=== PATIENT | female | born 1985 | race Caucasian/White ===

== ENCOUNTER → 2020-10-07 | Outpatient (CLI) | payer SELFPAY ==
[2020-10-07 16:30] LABS: HEMATOCRIT 40 % (35-52); HEMOGLOBIN 13.2 G/DL (11.5-16.0); MEAN CORPUSCULAR HEMOGLOBIN 30 PG (25-34); MEAN CORPUSCULAR HGB CONC 33 G/DL (32-36); MEAN CORPUSCULAR VOLUME 91 FL (80-99); MEAN PLATELET VOLUME 10.2 FL (7.4-10.4); PLATELET COUNT 278 10^3/uL (130-400); WHITE BLOOD COUNT 9.2 10^3/uL (4.3-11.0)
[2020-10-07 16:31] LABS: BASOPHILS % (AUTO) 0 % (0-10); EOSINOPHILS # (AUTO) 0.2 10^3/uL (0.0-0.3); EOSINOPHILS % (AUTO) 2 % (0-10); LYMPHOCYTES # (AUTO) 2.5 X 10^3 (1.0-4.0); LYMPHOCYTES % (AUTO) 27 % (12-44); MONOCYTES # (AUTO) 0.4 X 10^3 (0.0-1.0); MONOCYTES % (AUTO) 4 % (0-12); NEUTROPHILS # (AUTO) 6.1 X 10^3 (1.8-7.8); NEUTROPHILS % (AUTO) 67 % (42-75)
== END ==
LOC: LAB FS 15:58
PROVIDERS: ATTEND Family Medicine
DX: Z34.81 Encounter for supervision of other normal pregnancy, first trimester (principal); Z3A.00 Weeks of gestation of pregnancy not specified
CPT/HCPCS: 36415; 80055; 86703; 86762; 86780; 87088

== ENCOUNTER → 2021-01-06 | Outpatient (CLI) | payer MEDICAID ==
--- NOTE | 2021-01-06 11:23 | Diagnostic Imaging Report ---
INDICATION: Assessment during normal TECHNIQUE: Multiple real-time grayscale images were obtained over the gravid uterus. COMPARISON: None FINDINGS: Single viable intrauterine is currently in cephalic presentation. Placenta anterior fundal aspect without previa. The placenta margin to the os is approximately 8.9 cm. Normal amount of amniotic fluid. Visualized anatomical structures including the kidneys, bladder, stomach, intracranial structures, four-chamber heart, spine and cord insertion site unremarkable. There is presence of a two-vessel cord. Cervical length at 5.6 cm. Biometrical measurements are as follows: Biparietal 5.03 cm, age 21 weeks 2 days. Head circumference 19.06 cm, age 21 weeks 3 days. Abdominal circumference 16.98 cm, age 22 weeks 0 days. Femur length 4.27 cm, age 22 weeks 4 days. Sonographic estimate age: 22 weeks 2 days. Sonographic estimated date of delivery: 05/10/2021. Estimated Weight: 521 gm (+/- 76 gm). LMP percentile: 98%. heart rate: 152 beats per minute. number: 1 of 1. IMPRESSION: 1. Single viable intrauterine currently in cephalic presentation. Sonographic estimated age 22 weeks 2 days for estimated date of delivery 05/10/2021. 2. There is note made of a two-vessel umbilical cord. The remaining visualized anatomical structures appearing unremarkable. Dictated by: Dictated on workstation # [id number]
== END ==
LOC: RAD FS 08:03
PROVIDERS: ATTEND Obstetrics & Gynecology
DX: Z34.02 Encounter for supervision of normal first pregnancy, second trimester (principal); Z3A.22 22 weeks gestation of pregnancy
CPT/HCPCS: 76805

== ENCOUNTER 2021-01-11 12:44 | Emergency (ER) | payer MEDICAID ==
[~2021-01-11] VITALS: Ht 177.8 cm; Wt 90.7 kg
[2021-01-11 12:47] VITALS: BP 130/73
[2021-01-11] MEDS ORDERED: ACETAMINOPHEN 500 MG TAB (TYLENOL) PO STA (12:54)
--- NOTE | 2021-01-11 13:02 | ED Lower Extremity ---
General Chief Complaint: Lower Extremity Stated Complaint: LEFT ANKLE INJ Source: patient History of Present Illness Date Seen by Provider: January 11, 2021 Time Seen by Provider: 12:46 Initial Comments 35 yo female presenting with pain to left hair and ankle after having a pig run into her leg. She is approximately 23 weeks currently. She is taking p renatal vitamins but denies other medicine. 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 She states she has not been able to stand due to pain and burning in the foot and ankle. She came straight here and has not taken anything for pain. Pain is increased if she tries to stand, move her foot up, or has vibration to the lower extremity. She denies having problems with the extremity before today's injury. She denies any other injuries. Onset: just prior to arrival Severity: severe Pain/Injury Location: left leg, left ankle Method of Injury: other (pig ran into her leg) Modifying Factors: Worse With Jarring, Worse With Movement Associated Symptoms: burning sensation and pain Allergies and Home Medications Allergies Coded Allergies: aspirin (Verified Allergy, Unknown, Hives, 01/11/21) Home Medications Hydrocodone/Acetaminophen 1 Each Tablet, 1 TAB PO Q4H PRN for PAIN-SEVERE (8-10) Prescribed by: MARIANNA HERNANDEZ on 01/11/21 1344 Patient Home Medication List Home Medication List Reviewed: Yes Review of Systems Constitutional: no symptoms reported EENTM: no symptoms reported Respiratory: no symptoms reported Cardiovascular: no symptoms reported Gastrointestinal: no symptoms reported Genitourinary: no symptoms reported : Yes Musculoskeletal: see HPI Skin: change in color (slight red lenny to middle of hair where majority of pain is located and where pig hit her leg) Psychiatric/Neurological: Anxiety, Other (burning sensation in leg) Past Kdlyyqt-Fbyncp-Izmktm Hx Past Med/Social Hx: Reviewed Nursing Past Med/Soc Hx Past Medical History Surgeries: Yes Abdominal Respiratory: No Cardiac: Yes Neurological: No : Yes Reproductive Disorders: No Genitourinary: No Gastrointestinal: No Musculoskeletal: No Endocrine: No Psychosocial: No Physical Exam Vital Signs Vital Signs - First Documented 01/11/21 12:47 Temp 37.6 Pulse 90 Resp 18 B/P (MAP) 130/73 (92) Pulse Ox 100 O2 Delivery Room Air Capillary Refill : Height, Weight, BMI Height: '" Weight: lbs. oz. 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, no motor/sensory deficits, alert, oriented x 3 Skin: warm/dry, other (slight red color to mid hair on left side where she has contusion and pain and states the pig ran into her leg) Progress/Results/Core Measures Results/Orders My Orders Orders - MARIANNA HERNANDEZ MD Acetaminophen Tablet (Tylenol Tablet) (01/11/21 12:54) Ice: Apply To Affected Area (01/11/21 12:55) Elevate Affected Extremity (01/11/21 12:55) Tibia Fibula 2 View Left (01/11/21 12:55) Ankle 3 View Left (01/11/21 12:55) Hydrocodone/Apap 5/325 Tablet (Lortab 5 (01/11/21 13:44) Crutches (01/11/21 13:45) Vital Signs/I&O 01/11/21 12:47 Temp 37.6 Pulse 90 Resp 18 B/P (MAP) 130/73 (92) Pulse Ox 100 O2 Delivery Room Air Progress Progress Note #1: Progress Note ice, elevation, acetaminophen 500 mg ordered to help with pain. Order xrays to evaluate the tib/fib and ankle better for bony injury. differential diagnosis includes contusion to tibia, ankle fracture, tibia/fibula fracture, nerve contusion Progress Note #2: Time: 13:26 Progress Note discussed with patient and spouse that I did not see any definite fracture or dislocation on the xrays. It looked like there might be a small radio-opaque foreign body or bone chip on medial aspect of mortise view but not seen on other views. With her having burning sensation still this may be mostly contusion of bone and nerves causing her symptoms. Will try ice, elevation, rest and crutches for weight bearing as tolerated. for pain add on Hydrocodone/apap for severe pain if the plain acetaminophen does not manage her pain. Progress Note #3: Time: 13:59 Progress Note Radiology report shows no acute fracture or disruption of ankle mortise. Dr. Gilbert with radiology also made note of the small density within the ankle mortise area but no disruption of ankle mortise or joint effusion. Updated pt and spouse and offered a walking boot but she declined as she felt it would put too much pressure and make pain worse instead of improve it. Proceed with plan as above and advised to check back with Dr. Vegas if not improving or worsening as may need CT or MRI of ankle to look for fracture, or at least repeat xrays. Diagnostic Imaging Diagonstic Imaging: Xray Plain Films/CT/US/NM/MRI: leg Comments [facility] [place] [place] NAME: [facility] REC#: [id number] PT STATUS: REG ER : 1985 PHYSICIAN: MARIANNA HERNANDEZ MD ADMIT DATE: 01/11/21/ER FS Draft Date of Exam:01/11/21 TIBIA FIBULA 2 VIEW LEFT Left tibia-fibula at 1:08. Indication: Leg pain AP and lateral views were obtained. There are no prior studies available for comparison. There is no fracture, dislocation or acute bony abnormality evident. The lateral view does show that there is a smooth 1.5 cm bony excrescence along the posterior aspect of the proximal tibia. This finding is of uncertain etiology but could be a sequela of prior trauma. The knee and ankle joint seem well maintained. The soft tissues are unremarkable aside from a number of small vascular calcifications along the anterior aspect of the tibia. Impression: There is no acute bony abnormality noted. Dictated on workstation # [id number] Dict: 01/11/21 1344 Trans: 01/11/21 1348 CV [id number] Interpreted by: CARIN GILBERT MD Electronically signed by: Diagonstic Imaging: Xray Plain Films/CT/US/NM/MRI: ankle Comments [facility] [place] [place] NAME: [facility] REC#: [id number] PT STATUS: REG ER : 1985 PHYSICIAN: MARIANNA HERNANDEZ MD ADMIT DATE: 01/11/21/ER FS Draft Date of Exam:01/11/21 ANKLE 3 VIEW LEFT Left ankle at 1:05 Indication: Ankle pain 3 views were obtained. There are no prior studies available for comparison. On the oblique view there is a small 2.6 cm calcific density interposed between the lateral aspect of the talar dome and the distal tibia and fibula. This finding cannot be identified on the other 2 projections. This may represent small avulsion fracture. I suspect this is long-standing in nature. Acute injury cannot be entirely excluded however. No other fracture or acute bony abnormality is appreciated. The ankle mortise is not widened and the talar dome is smooth. The soft tissues are unremarkable. Impression: 1. The small calcific density interposed between the talus and the distal tibia and fibula is of uncertain etiology and indeterminate in age. Considerations as above. 2. There is no acute bony abnormality noted otherwise. Dictated on workstation # [id number] Dict: 01/11/21 1343 Trans: 01/11/[address] [facility] [id number] Interpreted by: CARIN GILBERT MD Electronically signed by: Departure Impression Primary Impression: Contusion of left tibia Additional Impressions: Left leg injury Qualified Codes: S89.92XA - Unspecified injury of left lower leg, initial encounter Left leg pain Disposition: 01 HOME, SELF-CARE Condition: Stable Departure-Patient Inst. Decision time for Depature: 13:59 Referrals: BRIEN VEGAS MD (PCP/Family) Primary Care Physician Patient Instructions: Minor Contusion ED, Going Up and Down Curbs or Stairs With a Walker or Crutches, Opioids for Short-Term Treatment of Pain, Muscle and Bone Pain (DC) Add. Discharge Instructions: Use ice 15-20 minutes every few hours to help with pain and inflammation. Hydrocodone/Acetaminophen 5/325 mg 1 pill every 4 hours as needed for severe pain. Elevate and rest your left leg as much as possible in next 2-3 days and use crutches for weight bearing as you tolerate it. Check back with Dr. Vegas this upcoming week if continued pain/problems. All discharge instructions reviewed with patient and/or family. Voiced understanding. Scripts Hydrocodone/Acetaminophen (Hydrocodone-Acetamin 5-325 mg) 1 Each Tablet 1 TAB PO Q4H PRN for PAIN-SEVERE (8-10) for 5 Days, #30 TAB 0 Refills Prov: MARIANNA HERNANDEZ MD 01/11/21 Work/School Note: Work Release Form Date Seen in the Emergency Department: January 11, 2021 Return to Work: Jan 15, 2021 Other Restrictions Listed Below: Use crutches as needed for weightbearing MARIANNA HERNANDEZ MD January 11, 2021 13:02
[2021-01-11] MEDS ORDERED: HYDROcodone/APAP 5 MG/325 MG (LORTAB) TAB PO STA (13:44)
[2021-01-11] MEDS ORDERED: ACHD5005 PO (13:44)
--- NOTE | 2021-01-11 13:48 | Diagnostic Imaging Report ---
Left ankle at 1:05 Indication: Ankle pain 3 views were obtained. There are no prior studies available for comparison. On the oblique view there is a small 2.6 mm calcific density interposed between the lateral aspect of the talar dome and the distal tibia and fibula. This finding cannot be identified on the other 2 projections. This may represent small avulsion fracture. I suspect this is long-standing in nature. Acute injury cannot be entirely excluded however. No other fracture or acute bony abnormality is appreciated. The ankle mortise is not widened and the talar dome is smooth. The soft tissues are unremarkable. Impression: 1. The small calcific density interposed between the talus and the distal tibia and fibula is of uncertain etiology and indeterminate in age. Considerations as above. 2. There is no acute bony abnormality noted otherwise. Dictated by: Dictated on workstation # [id number]
--- NOTE | 2021-01-11 13:49 | Diagnostic Imaging Report ---
Left tibia-fibula at 1:08. Indication: Leg pain AP and lateral views were obtained. There are no prior studies available for comparison. There is no fracture, dislocation or acute bony abnormality evident. The lateral view does show that there is a smooth 1.5 cm bony excrescence along the posterior aspect of the proximal tibia. This finding is of uncertain etiology but could be a sequela of prior trauma. The knee and ankle joint seem well maintained. The soft tissues are unremarkable aside from a number of small vascular calcifications along the anterior aspect of the tibia. Impression: There is no acute bony abnormality noted. Dictated by: Dictated on workstation # [id number]
== END 2021-01-11 14:08 | disposition home or self-care (01) ==
LOC: EDUNIT# 12:44 → ER FS 12:46
DX: O9A.212 Injury, poisoning and certain other consequences of external causes complicating pregnancy, second trimester (principal); S80.12XA Contusion of left lower leg, initial encounter; Z3A.23 23 weeks gestation of pregnancy; W55.42XA Struck by pig, initial encounter
CPT/HCPCS: 73590; 73610

== ENCOUNTER → 2021-02-26 | Outpatient (CLI) | payer MEDICAID ==
[~2021-02-26] MED LIST: ACHD5005 PO
[2021-02-26 10:28] LABS: HEMATOCRIT 35 % (35-52); HEMOGLOBIN 11.7 G/DL (11.5-16.0); MEAN CORPUSCULAR HEMOGLOBIN 29 PG (25-34); MEAN CORPUSCULAR HGB CONC 33 G/DL (32-36); MEAN CORPUSCULAR VOLUME 89 FL (80-99); PLATELET COUNT 220 10^3/uL (130-400); WHITE BLOOD COUNT 8.7 10^3/uL (4.3-11.0)
== END ==
LOC: LAB FS 09:50
PROVIDERS: ATTEND Family Medicine
DX: Z34.81 Encounter for supervision of other normal pregnancy, first trimester (principal); Z3A.00 Weeks of gestation of pregnancy not specified
CPT/HCPCS: 36415; 82950; 85027; 86780; 86850

== ENCOUNTER → 2021-04-03 | Outpatient (CLI) | payer MEDICAID ==
--- NOTE | 2021-04-03 12:55 | Diagnostic Imaging Report ---
INDICATION: Evaluate growth and follow-up two-vessel cord. TECHNIQUE: Multiple real-time grayscale images were obtained over the gravid uterus. COMPARISON: 01/06/2021. FINDINGS: There is a single live fetus in a breech presentation. heart rate was recorded at 146 bpm. Placenta is anterior and fundal. Amniotic fluid index is 12.3 cm. Cervical length is 5.6 cm. There is a two-vessel umbilical cord. No other complicating features are detected. Biometrical measurements are as follows: Biparietal 8.96 cm, age 36 weeks 2 days. Head circumference 31.08 cm, age 34 weeks 6 days. Abdominal circumference 29.65 cm, age 33 weeks 5 days. Femur length 6.57 cm, age 33 weeks 6 days. Sonographic estimate age: 34 weeks 5 days. Sonographic estimated date of delivery: 05/10/2021. Estimated Weight: 2339 gm (+/- 342 gm). LMP percentile: 70%. heart rate: 146 beats per minute. number: 1 of 1. IMPRESSION: Single live IUP approximately 34-35 weeks gestational age showing normal interval growth when compared to prior exam. Two-vessel cord is again noted. No other abnormalities are detected. Dictated by: Dictated on workstation # [id number]
== END ==
LOC: RAD FS 10:17
PROVIDERS: ATTEND Family Medicine
DX: O69 Labor and delivery complicated by umbilical cord complications (principal); Z3A.34 34 weeks gestation of pregnancy
CPT/HCPCS: 76805

== ENCOUNTER → 2021-04-09 | Outpatient (CLI) | payer MEDICAID | LOC: LABNPT 15:01 | PROVIDERS: ATTEND Family Medicine | DX: Z34.81 Encounter for supervision of other normal pregnancy, first trimester (principal) | CPT/HCPCS: 87081 ==

== ENCOUNTER 2021-05-07 19:00 | Inpatient (IN) | payer MEDICAID ==
[~2021-05-07] VITALS: Ht 177.8 cm; Wt 95.6 kg
[2021-05-07 19:20] VITALS: BP 115/71
[2021-05-07] MEDS ORDERED: NS IV 1000 ML 1,000 ML ONE (19:50)
[2021-05-07 20:00] VITALS: BP 115/71
[2021-05-07] MEDS ORDERED: NS IV 1000 ML 1,000 ML IV SCH (20:00)
[2021-05-07 20:35] LABS: BILIRUBIN,URINE NEGATIVE (NEGATIVE); CLARITY,URINE CLEAR; COLOR,URINE YELLOW; GLUCOSE, URINE (UA) NEGATIVE (NEGATIVE); KETONES,URINE TRACE (NEGATIVE); LEUKOCYTE ESTERASE ,URINE NEGATIVE (NEGATIVE); NITRITE,URINE NEGATIVE (NEGATIVE); PH,URINE 6.5 (5-9); PROTEIN,URINE NEGATIVE (NEGATIVE)
[2021-05-07 20:35] LABS: BASOPHILS % (AUTO) 0 % (0-10); EOSINOPHILS # (AUTO) 0.1 10^3/uL (0.0-0.3); EOSINOPHILS % (AUTO) 1 % (0-10); HEMATOCRIT 39 % (35-52); HEMOGLOBIN 12.9 g/dL (11.5-16.0); LYMPHOCYTES # (AUTO) 2.6 10^3/uL (1.0-4.0); LYMPHOCYTES % (AUTO) 28 % (12-44); MEAN CORPUSCULAR HEMOGLOBIN 29 pg (25-34); MEAN CORPUSCULAR HGB CONC 33 g/dL (32-36); MEAN CORPUSCULAR VOLUME 89 fL (80-99); MEAN PLATELET VOLUME 11.6 fL (9.0-12.2); MONOCYTES # (AUTO) 0.4 10^3/uL (0.0-1.0); MONOCYTES % (AUTO) 4 % (0-12); NEUTROPHILS # (AUTO) 6.1 10^3/uL (1.8-7.8); NEUTROPHILS % (AUTO) 66 % (42-75); PLATELET COUNT 211 10^3/uL (130-400); WHITE BLOOD COUNT 9.2 10^3/uL (4.3-11.0)
[2021-05-07] MEDS ORDERED: ACET-2267 PO (20:38)
[2021-05-07] MEDS ORDERED: CYCL5TAB PO (20:38)
[2021-05-07] MEDS ORDERED: ACHD5005 PO (20:38)
[2021-05-07] MEDS ORDERED: PREN-8 PO (20:38)
[2021-05-07 20:48] LABS: BACTERIA,URINE TRACE /HPF; RBC,URINE RARE /HPF
[2021-05-07 21:00] VITALS: BP 119/57
[2021-05-07] MEDS: D5 LR IV SOLUTION 1,000 ML IV SCH (21:18)
[2021-05-07 22:00] VITALS: BP 114/61
[2021-05-07] MEDS ORDERED: CATHETER FLUSH 10 ML SYR IV SCH (22:00)
--- NOTE | 2021-05-07 22:19 | History & Physical-OB ---
OB - Chief Complaint & HPI Date/Time Date of Admission: Date of Admission: May 07, 2021 at 19:09 Date seen by a Provider: May 08, 2021 Time Seen by a Provider: 07:55 Chief Complaint/History OB-Reason for Admission/Chief: Induction of Labor Hx : 3 Hx Para: 2 Expected Date of Delivery: May 14, 2021 Gestational Age in Weeks: 39 Admission Nurse Assessment Rev: Yes History of Labs GBS neg O neg Antibody neg RNI HBsAg NR HIV NR RPR NR Allergies and Home Medications Allergies Coded Allergies: Penicillins (Verified Allergy, Unknown, rash, 05/07/21) aspirin (Verified Allergy, Unknown, Hives, 01/11/21) Patient Home Medication List Home Medication List Reviewed: Yes Acetaminophen (Tylenol Extra Strength) 500 Mg Tablet, 500 MG PO BID, (Reported) Entered as Reported by: DENNIS WRIGHT on 05/07/212037 Last Action: New Order Cyclobenzaprine HCl (Cyclobenzaprine HCl) 5 Mg Tablet, 5 MG PO PRN, (Reported) Entered as Reported by: DENNIS WRIGHT on 05/07/212037 Last Action: New Order Hydrocodone/Acetaminophen (Hydrocodone-Acetamin 5-325 mg) 1 Each Tablet, 0.5 TAB PO Q4H PRN for PAIN-MODERATE (5-7), (Reported) Entered as Reported by: DENNIS WRIGHT on 05/07/212037 Last Action: New Order Vit W-Ca,Fe,FA(<1 mg) ( Formula) 1 Each Tablet, 1 EACH PO DAILY, (Reported) Entered as Reported by: DENNIS WRIGHT on 05/07/212037 Last Action: New Order Discontinued Medications Hydrocodone/Acetaminophen (Hydrocodone-Acetamin 5-325 mg) 1 Each Tablet, 1 TAB PO Q4H PRN for PAIN-SEVERE (8-10) Discontinued Reason: No Longer Taking Prescribed by: MARIANNA HERNANDEZ on 01/11/21 1344 Last Action: Discontinued OB - History Hx of Present Care: Yes Ultrasounds: Normal mid trimester US Obstetrical Complications: Other (2 vessel cord) Medical Complications: None Patient Past Medical History n/a Social History/Family History 2nd Hand Smoke Exposure: No OB - Admission Exam Physical Exam HEENT: NCAT Heart: Rhythm Normal Lungs: Clear Abdomen: Gravid Extremities: Normal Reflexes: Normal Cervical Dilatation: 2cm Effacement: 75% Station: -1 Membranes: Intact Heart Rate: 130's Accelerations: Accelerations Present Decelerations: No Decelerations Short Term Variability: Present Detention Variability: Average (6-25) Contractions on Admission: >10 Minutes Apart Intensity: Mild Multani Scoring Tool (Modified) Dilation (cm): 1-2cm (1) Effacement (%): 51-79% (2) Descent/Station: -1,0 (2) Cervix Consistency: Soft (2) Cervix Position: Anterior (2) Add 1 point for: Each previous vaginal delivery (1) Multani Score: 10 Labs Laboratory Tests Test 05/07/21 20:00 05/07/21 20:15 Range/Units Urine Color YELLOW Urine Clarity CLEAR Urine pH 6.5 5-9 Urine Specific [place] 1.015 L 1.016-1.022 Urine Protein NEGATIVE NEGATIVE Urine Glucose (UA) NEGATIVE NEGATIVE Urine Ketones TRACE H NEGATIVE Urine Nitrite NEGATIVE NEGATIVE Urine Bilirubin NEGATIVE NEGATIVE Urine Urobilinogen 0.2 < = 1.0 MG/DL Urine Leukocyte Esterase NEGATIVE NEGATIVE Urine RBC (Auto) 3+ H NEGATIVE Urine RBC RARE /HPF Urine WBC NONE /HPF Urine Squamous Epithelial Cells 5-10 /HPF Urine Crystals NONE /LPF Urine Bacteria TRACE /HPF Urine Casts NONE /LPF Urine Mucus NEGATIVE /LPF Urine Culture Indicated NO White Blood Count 9.2 4.3-11.0 10^3/uL Red Blood Count 4.39 3.80-5.11 10^6/uL Hemoglobin 12.9 11.5-16.0 g/dL Hematocrit 39 35-52 % Mean Corpuscular Volume 89 80-99 fL Mean Corpuscular Hemoglobin 29 25-34 pg Mean Corpuscular Hemoglobin Concent 33 32-36 g/dL Red Cell Distribution Width 13.2 10.0-14.5 % Platelet Count 211 130-400 10^3/uL Mean Platelet Volume 11.6 9.0-12.2 fL Immature Granulocyte % (Auto) 1 % Neutrophils (%) (Auto) 66 42-75 % Lymphocytes (%) (Auto) 28 12-44 % Monocytes (%) (Auto) 4 0-12 % Eosinophils (%) (Auto) 1 0-10 % Basophils (%) (Auto) 0 0-10 % Neutrophils # (Auto) 6.1 1.8-7.8 10^3/uL Lymphocytes # (Auto) 2.6 1.0-4.0 10^3/uL Monocytes # (Auto) 0.4 0.0-1.0 10^3/uL Eosinophils # (Auto) 0.1 0.0-0.3 10^3/uL Basophils # (Auto) 0.0 0.0-0.1 10^3/uL Immature Granulocyte # (Auto) 0.1 0.0-0.1 10^3/uL OB - Assessment/Plan/Diagnosis Assessment Assessment: induction of labor Admission Dx 35 y o @ 39 weeks GBS neg 2 vessel cord Admission Status: Inpatient Order (span 2 midnights) Reason for Inpatient Admission: IOL at 39 weeks Plan Plan: Induction Induction Method: per Misoprostol Protocol ABBEY UNDERWOOD DO May 07, 2021 22:19
[2021-05-07 23:00] VITALS: BP 100/58
[2021-05-08] VITALS (65 sets, daily range): BP systolic 89–129; BP diastolic 50–82
[2021-05-08] MEDS: D5 LR IV SOLUTION 1,000 ML IV SCH ×3 (05:15→13:29)
[2021-05-08] MEDS ORDERED: NALOXONE 0.4 MG/ML 1 ML (NARCAN) VIAL ONE (08:48)
[2021-05-08] MEDS ORDERED: fentaNYL 2 mcg/ml BUPIVA 0.125 100 ML ONE (09:03)
[2021-05-08] MEDS ORDERED: LACTATED RINGERS 1,000 ML IV ONE ×3 (09:03→10:00)
[2021-05-08] MEDS ORDERED: fentaNYL INJ 100 MCG/2 ML AMP INJ ONE (10:00)
[2021-05-08] MEDS ORDERED: BUPIVACAINE 0.25% 30 ML (SENSORCAINE) VIAL ONE (10:00)
[2021-05-08] MEDS ORDERED: fentaNYL INJ 100 MCG/2 ML AMP ONE (10:00)
[2021-05-08] MEDS ORDERED: EPIDURAL (fentaNYL 2 MCG/ML BUPIVA 0.125%)100 ML BAG EPI PRN (10:00)
[2021-05-08] MEDS ORDERED: NALOXONE 0.4 MG/ML 1 ML (NARCAN) VIAL IV PRN ×2 (10:00→16:30)
[2021-05-08] MEDS ORDERED: ONDANSETRON 4 MG/2 ML (SDV) Z0FRAN IV PRN (10:00)
[2021-05-08] MEDS ORDERED: fentaNYL 2 mcg/ml BUPIVA 0.125 100 ML EPI PRN (10:15)
[2021-05-08] MEDS ORDERED: LIDOCAINE 1% INJ 20 ML 20 ML VIAL ONE ×2 (10:29→16:06)
[2021-05-08] MEDS ORDERED: OXYTOCIN PRE-MIX DRIP 500 ML IV SCH ×2 (11:45→16:30)
[2021-05-08] MEDS ORDERED: OXYTOCIN PRE-MIX DRIP 500 ML IV ONE (11:47)
[2021-05-08] MEDS ORDERED: TETANUS,DIPTH,PERTUSS P/F (BOOSTRIX) 0.5 ML VIAL IM ONE (16:30)
[2021-05-08] MEDS ORDERED: WITCH HAZEL(TUCKS) 40 EA JAR TOP PRN (16:30)
[2021-05-08] MEDS ORDERED: DIBUCAINE 1% OINTMENT 30 GM TUBE TOP PRN (16:30)
[2021-05-08] MEDS ORDERED: MEASLES,MUMPS,RUBELLA 1 EA INJ SQ ONE (16:30)
[2021-05-08] MEDS ORDERED: BENZOCAINE/MENTHOL (DERMOPLAST) 56 ML CAN TP PRN (16:30)
--- NOTE | 2021-05-08 16:30 | OB Labor & Delivery Record ---
L&D History Date of Service Date of Service: May 08, 2021 History Expected Date of Delivery: May 14, 2021 Gestational Age in Weeks: 39 Hx : 3 Hx Para: 2 Complications Events: Routine care Operative Indications (Cesarea: N/A-Vaginal Delivery Intrapartal Events: None L&D Stage1 Stage One Onset of Labor - Date: May 08, 2021 Monitors and Tracing Monitor Mode: External Heart Rate: 130 Station: -2 Short Term Variability: Present Vital Signs VS - Last 72 Hours, by Label 05/07/21 05/07/21 05/07/21 05/07/21 19:20 20:00 21:00 22:00 Temp 36.3 36.3 Pulse 75 75 67 55 Resp 18 18 18 18 B/P (MAP) 115/71 (86) 119/57 (77) 114/61 (78) Pulse Ox 98 98 O2 Delivery Room Air Room Air Room Air Room Air 05/07/21 05/08/21 05/08/21 05/08/21 23:00 00:00 01:00 02:00 Temp 36.5 Pulse 66 63 53 51 Resp 18 18 18 18 B/P (MAP) 100/58 (72) 102/58 (73) 96/52 (67) 93/55 (68) O2 Delivery Room Air Room Air Room Air Room Air 05/08/21 05/08/21 05/08/21 05/08/21 03:00 04:00 05:00 06:00 Temp 36.2 Pulse 52 58 54 48 Resp 18 18 18 18 B/P (MAP) 94/50 (65) 112/65 (81) 112/69 (83) 109/71 (84) O2 Delivery Room Air Room Air Room Air Room Air 05/08/21 05/08/21 05/08/21 07:00 07:37 08:07 Temp 35.9 36.3 Pulse 62 60 Resp 18 18 B/P (MAP) 99/61 (74) 119/66 (83) Pulse Ox 98 O2 Delivery Room Air Room Air Rupture of Membranes Spontaneous Ruture of Membrane: No Amniotic Membrane Rupture Time: 0803 Vaginal Bleeding Description: Normal Show Induction/Anesthesia Epidural Cath Placement - Time: 1038 Progress/Notes Patient admitted for elective IOL at 39 weeks. Misoprostol given overnight followed by Pitocin augmentation today following AROM. Epidural received, and she progressed to complete and + 2 station with max dose of pitocin of 2 mu. L&D Stage2 Stage Two Stage II Date: May 08, 2021 Monitors and Tracing Monitor Mode: External Heart Rate: 130 Monitor Accelerations: Uniform Monitor Decelerations: Variable Transport Tank Technician Variability: Average (6-10) Short Term Variability: Present Position: Right Occiput Anterior Presentation: Vertex Cord Descript/Complications Cord Vessel Description: 3 Vessels Delivery Type Infant Delivery Method: Spontaneous Vaginal Anterior Shoulder: Left Episiotomy/Perineal Laceration Laceraction(s)/Extensions: Yes (bilateral periurethral and 1st degree vaginal lacerations repaired using 3-0 rapide in usual fashion) Episiotomy Description: Vaginal Extension/lac, 1st degree Sutures Used: Vicryl Condition of Delivery 1 minute Comment: 8 5 minute Comment: 9 Notes Live male infant weight 6lbs 11 oz. Condition of Condition of Infant: Living Exam: No Observed Abnormalities Resuscitation Resuscitation: N/A - Spontaneous Resp L&D Stage3 Stage Three Stage III Date: May 08, 2021 Pictocin Pitocin Administration mu/min: 2 Pitocin ml/hr: 2 Pitocin Administration Comment: 30 mu wide open at delivery of placenta Placenta Delivery Placenta Delivery: Spontaneous Delivery Summary Summary Estimated blood loss (mL): 300 Attending at delivery: Abbey Underwood DO Condition of Delivery Examined: Cervix Examined, Uterus Explored Post Hemorrhage: No Condition of Mother stable Condition of Infant (s) stable ABBEY UNDERWOOD DO May 08, 2021 16:30
--- NOTE | 2021-05-08 16:33 | Discharge Inst-Women's Service ---
Discharge Inst-Women's Serv Depart Medication/Instructions New, Converted or Re-Newed RX: RX on Chart Final Diagnosis PPD 2 NVD Problems Reviewed?: Yes Consults/Follow Up Additional Follow Up: Yes Orders/Referrals Dr. Underwood in 6 weeks Activity Activity: Activity as Tolerated Driving Instructions: No Driving for 1 Week NO SMOKING: NO SMOKING Nothing Inside Vagina: No Douching, No Lozano, No Tampons Diet Discharge Diet: No Restrictions Symptoms to Report to : Bleeding Excessive, Pain Increased, Fever Over 101 Degrees F, Vaginal Bleeding Increase, Questions/Concerns For Any Problems or Questions: Contact Your Physician ABBEY UNDERWOOD DO May 08, 2021 16:33
[2021-05-08] MEDS ORDERED: IBUP-844 PO (16:35)
[2021-05-08] MEDS ORDERED: ACHD5005 PO (16:35)
[2021-05-08] MEDS ORDERED: DIBU30OI TOP (16:35)
[2021-05-08] MEDS ORDERED: BENZ78AE5 TP (16:35)
[2021-05-08] MEDS: IBUPROFEN 600 MG (MOTRIN) TAB PO SCH (19:01)
[2021-05-08] MEDS: DOCUSATE SODIUM 100 MG (COLACE) CAP PO SCH ×2 (20:57→21:00)
[2021-05-08] MEDS: HYDROcodone/APAP 5 MG/325 MG (LORTAB) TAB PO PRN (20:57)
[2021-05-08] MEDS ORDERED: CATHETER FLUSH 10 ML SYR IV SCH (22:00)
[2021-05-09] MEDS: IBUPROFEN 600 MG (MOTRIN) TAB PO SCH ×4 (00:29→18:02)
[2021-05-09 01:06] VITALS: BP 107/61
[2021-05-09 04:10] VITALS: BP 96/50
[2021-05-09 05:53] LABS: BASOPHILS % (AUTO) 0 % (0-10); EOSINOPHILS # (AUTO) 0.1 10^3/uL (0.0-0.3); EOSINOPHILS % (AUTO) 1 % (0-10); HEMATOCRIT 35 % (35-52); HEMOGLOBIN 11.4 g/dL (11.5-16.0); LYMPHOCYTES # (AUTO) 2.4 10^3/uL (1.0-4.0); LYMPHOCYTES % (AUTO) 24 % (12-44); MEAN CORPUSCULAR HEMOGLOBIN 30 pg (25-34); MEAN CORPUSCULAR HGB CONC 33 g/dL (32-36); MEAN CORPUSCULAR VOLUME 90 fL (80-99); MEAN PLATELET VOLUME 11.5 fL (9.0-12.2); MONOCYTES # (AUTO) 0.4 10^3/uL (0.0-1.0); MONOCYTES % (AUTO) 4 % (0-12); NEUTROPHILS # (AUTO) 7.1 10^3/uL (1.8-7.8); NEUTROPHILS % (AUTO) 71 % (42-75); PLATELET COUNT 165 10^3/uL (130-400); WHITE BLOOD COUNT 10.1 10^3/uL (4.3-11.0)
[2021-05-09] MEDS ORDERED: PRENATAL VITAMIN 1 EA TAB PO SCH (07:00)
--- NOTE | 2021-05-09 07:40 | Postpartum Progress Note ---
Note Note Day # 1 Subjective: Patient is without complaints. Ambulating, voiding. Tolerating a regular diet without nausea or vomiting. Normal lochia. Pain is well controlled with oral pain medications. Objective: Physical Exam: General - Alert and oriented, no apparent distress Abdomen - Soft, appropriately tender to palpation, non-distended, fundus firm at umbilicus Extremities - no edema, negative Christine's bilaterally Assessment: Post- day # 1, status post vaginal delivery. Recovering well, hemodynamically stable Acute blood loss anemia Plan: Routine care. Encourage breast feeding. Encourage ambulation. Ferrous sulfate supplementation. Plan for discharge today Vitals - Labs Vital Signs - I&O Vital Signs Date Time Temp Pulse Resp B/P (MAP) Pulse Ox O2 Delivery O2 Flow Rate FiO2 05/09/21 04:10 36.3 68 18 96/50 (65) 96 Room Air 05/09/21 01:06 36.4 72 18 107/61 (76) 95 Room Air 05/08/21 19:56 36.7 71 18 118/60 (79) 97 Room Air 05/08/21 18:30 36.3 76 18 113/60 (77) Room Air 05/08/21 17:58 60 18 110/59 (76) Room Air 05/08/21 17:15 35.8 57 18 115/58 (77) Room Air 05/08/21 17:00 61 18 111/59 (76) Room Air 05/08/21 16:30 35.9 73 18 117/73 (88) Room Air 05/08/21 16:15 61 18 122/78 (93) Room Air 05/08/21 16:00 80 18 124/81 (95) 99 Room Air 05/08/21 15:45 60 18 127/74 (91) 100 Room Air 05/08/21 15:30 65 18 124/82 (96) 98 Room Air 05/08/21 15:15 57 18 127/71 (89) 99 Room Air 05/08/21 15:00 68 18 117/71 (86) 99 Room Air 05/08/21 14:45 62 18 117/70 (86) 99 Room Air 05/08/21 14:30 82 18 101/71 (81) 96 Room Air 05/08/21 14:15 108 18 89/52 (64) 98 Room Air 05/08/21 14:00 72 18 109/65 (80) 98 Room Air 05/08/21 13:45 36.1 57 18 113/72 (86) 100 Room Air 05/08/21 13:30 58 18 119/78 (92) 99 Room Air 05/08/21 13:15 65 18 116/76 (89) 99 Room Air 05/08/21 13:00 57 18 118/65 (82) 98 Room Air 05/08/21 12:45 61 18 97/50 (66) 97 Room Air 05/08/21 12:30 86 18 110/67 (81) 97 Room Air 05/08/21 12:15 79 18 117/73 (88) 97 Room Air 05/08/21 12:00 36.2 71 18 125/70 (88) 98 Room Air 05/08/21 11:55 82 18 119/73 (88) 98 Room Air 05/08/21 11:50 80 18 119/71 (87) 98 Room Air 05/08/21 11:45 65 18 118/67 (84) 97 Room Air 05/08/21 11:40 66 18 121/72 (88) 98 Room Air 05/08/21 11:35 63 18 122/58 (79) 98 Room Air 05/08/21 11:30 65 18 117/62 (80) 98 Room Air 05/08/21 11:26 75 18 117/57 (77) 98 Room Air 05/08/21 11:23 67 18 118/65 (82) 97 Room Air 05/08/21 11:20 64 18 123/75 (91) 97 Room Air 05/08/21 11:14 60 18 125/76 (92) 97 Room Air 05/08/21 11:11 66 18 128/69 (88) 97 Room Air 05/08/21 11:06 62 18 111/54 (73) 95 Room Air 05/08/21 11:03 66 18 122/76 (91) 97 Room Air 05/08/21 11:00 66 18 120/74 (89) 98 Room Air 05/08/21 10:57 66 18 116/68 (84) 98 Room Air 05/08/21 10:53 63 18 120/68 (85) 98 Room Air 05/08/21 10:50 36.4 71 18 117/65 (82) 98 Room Air 05/08/21 10:49 71 18 117/65 (82) 98 Room Air 05/08/21 10:46 60 18 117/63 (81) 99 Room Air 05/08/21 10:44 64 18 129/62 (84) 99 Room Air 05/08/21 10:41 60 18 122/78 (93) 98 Room Air 05/08/21 10:35 65 18 118/78 (91) 97 Room Air 05/08/21 10:32 64 18 121/71 (88) 97 Room Air 05/08/21 10:29 70 18 114/61 (78) 97 Room Air 05/08/21 10:26 67 18 116/69 (85) 99 Room Air 05/08/21 10:23 70 18 125/75 (92) 98 Room Air 05/08/21 10:20 64 18 128/72 (90) 97 Room Air 05/08/21 10:17 67 18 122/71 (88) 99 Room Air 05/08/21 10:14 65 18 126/71 (89) 98 Room Air 05/08/21 10:11 66 18 123/80 (94) 98 Room Air 05/08/21 10:08 69 18 116/79 (91) 99 Room Air 05/08/21 10:02 62 18 124/70 (88) Room Air 05/08/21 09:10 36.1 05/08/21 08:07 36.3 05/08/21 07:37 35.9 60 18 119/66 (83) 98 Room Air I & O 05/09/21 07:00 Intake Total 1000 ml Balance 1000 ml Labs Laboratory Tests 05/09/21 05:42: White Blood Count 10.1, Red Blood Count 3.87, Hemoglobin 11.4L, Hematocrit 35, Mean Corpuscular Volume 90, Mean Corpuscular Hemoglobin 30, Mean Corpuscular Hemoglobin Concent 33, Red Cell Distribution Width 13.4, Platelet Count 165, Mean Platelet Volume 11.5, Immature Granulocyte % (Auto) 0, Neutrophils (%) (Auto) 71, Lymphocytes (%) (Auto) 24, Monocytes (%) (Auto) 4, Eosinophils (%) (Auto) 1, Basophils (%) (Auto) 0, Neutrophils # (Auto) 7.1, Lymphocytes # (Auto) 2.4, Monocytes # (Auto) 0.4, Eosinophils # (Auto) 0.1, Basophils # (Auto) 0.0, Immature Granulocyte # (Auto) 0.0 JAIRON DESAI APRN May 09, 2021 07:40
[2021-05-09] MEDS ORDERED: FERROUS SULF 325 MG (IRON) TAB PO SCH (09:00)
[2021-05-09] MEDS: DOCUSATE SODIUM 100 MG (COLACE) CAP PO SCH (10:39)
[2021-05-09 10:40] VITALS: BP 116/57
[2021-05-09 12:19] VITALS: BP 130/63
[2021-05-09] MEDS: HYDROcodone/APAP 5 MG/325 MG (LORTAB) TAB PO PRN (18:02)
== END 2021-05-09 18:10 | disposition home or self-care (01) | DRG 806 ==
LOC: LDRP 19:09
PROVIDERS: ADMIT Obstetrics & Gynecology; ATTEND Obstetrics & Gynecology
PROC: 3E0DXGC Introduction of Other Therapeutic Substance into Mouth and Pharynx, External Approach (ICD-10-PCS; 2021-05-07)
PROC: 10E0XZZ Delivery of Products of Conception, External Approach (ICD-10-PCS; principal; 2021-05-08)
PROC: 0W8NXZZ Division of Female Perineum, External Approach (ICD-10-PCS; 2021-05-08)
PROC: 0HQ9XZZ Repair Perineum Skin, External Approach (ICD-10-PCS; 2021-05-08)
PROC: 0UQGXZZ Repair Vagina, External Approach (ICD-10-PCS; 2021-05-08)
DX: O69.89X0 Labor and delivery complicated by other cord complications, not applicable or unspecified (principal); D62 Acute posthemorrhagic anemia; Z37.0 Single live birth; Z3A.39 39 weeks gestation of pregnancy; O70.0 First degree perineal laceration during delivery; O71.82 Other specified trauma to perineum and vulva; O90.81 Anemia of the puerperium
CPT/HCPCS: 36415; 81000; 85025; 86850; 86900; 86901

== ENCOUNTER 2021-09-30 08:51 | Emergency (ER) | payer MEDICAID ==
[~2021-09-30] VITALS: Ht 177.8 cm; Wt 82.6 kg
[~2021-09-30 08:51] MED LIST changes: +ACET-2267 PO; +BENZ78AE5 TP; +CYCL5TAB PO; +DIBU30OI TOP; +IBUP-844 PO; +PREN-8 PO
--- NOTE | 2021-09-30 08:55 | ED Back Pain ---
General Chief Complaint: Back Problems Stated Complaint: BACK PAIN History of Present Illness Date Seen by Provider: Sep 30, 2021 Time Seen by Provider: 08:57 Initial Comments 35-year-old female presents with low back pain. She reports that started last night. Patient is approximately 5 months . She reports that every since her she has had difficulty with low back pain. She is seen physical therapy and is supposed to see a pelvic specialist. She denies any numbness or tingling in her legs or feet. She denies any loss of bowel or bladder control. She denies any urinary symptoms. She reports she had a normal bowel movement yesterday. She does state that she did start her menstrual cycle today. She denies any fever, chills, nausea or vomiting. Patient reports she been trying [id number] medications without any relief. Allergies and Home Medications Allergies Coded Allergies: Penicillins (Verified Allergy, Unknown, rash, 05/07/21) aspirin (Verified Allergy, Unknown, Hives, 01/11/21) Patient Home Medication List Home Medication List Reviewed: Yes Benzocaine/Menthol (Dermoplast Pain Relieving [place]) 78 Gm Aerosol, 56 EA TP UD PRN for PAIN- SEE INSTRUCTIONS Prescribed by: ABBEY UNDERWOOD on 05/08/21 163 Cyclobenzaprine HCl (Cyclobenzaprine HCl) 5 Mg Tablet, 5 MG PO PRN, (Reported) Entered as Reported by: DENNIS WRIGHT on 05/07/212037 Dibucaine (Dibucaine) 30 Gm Oint, 0 GM TOP UD PRN for PAIN- SEE INSTRUCTIONS Prescribed by: ABBEY UNDERWOOD on 05/08/21 1635 Hydrocodone Bit/Acetaminophen (HYDROcodone/APAP 5 MG/325 MG TAB) 1 Tab Tab, 1 EA PO Q4H PRN for PAIN-MODERATE (5-7) Prescribed by: ABBEY UNDERWOOD on 05/08/21 163 Ibuprofen (Ibu) 600 Mg Tablet, 600 MG PO Q6HR Prescribed by: ABBEY UNDERWOOD on 05/08/21 1635 Vit W-Ca,Fe,FA(<1 mg) ( Formula) 1 Each Tablet, 1 EACH PO DAILY, (Reported) Entered as Reported by: DENNIS WRIGHT on 05/07/212037 Review of Systems Constitutional: No chills, No fever EENTM: no symptoms reported Respiratory: No cough, No short of breath Cardiovascular: No chest pain, No palpitations Gastrointestinal: No abdominal pain, No nausea, No vomiting Genitourinary: no symptoms reported Musculoskeletal: see HPI, back pain Skin: no symptoms reported Psychiatric/Neurological: No Symptoms Reported Past Lhgcopv-Rlvxnw-Ckrewk Hx Seasonal Allergies Seasonal Allergies: No Past Medical History Surgeries: Yes Abdominal Respiratory: No Cardiac: Yes Neurological: No Reproductive Disorders: No Genitourinary: No Gastrointestinal: No Musculoskeletal: No Endocrine: No HEENT: No 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 oz. kg; 30.24 BMI Method: General Appearance: No Apparent Distress, WD/WN Neck: Non Tender, Supple Cardiovascular: Regular Rate, Rhythm, No Edema Respiratory: Lungs Clear, Normal Breath Sounds Gastrointestinal: Non Tender, Soft Back: Other (Mild midline tenderness at the lumbosacral junction, mild parasternal muscle tightness) Extremity: Normal Capillary Refill, Normal Inspection, Normal Range of Motion, Non Tender, No Calf Tenderness Neurologic/Psychiatric: Alert, Oriented x3, No Motor/Sensory Deficits, Normal Mood/Affect Progress/Results/Core Measures Results/Orders Lab Results Laboratory Tests Test 09/30/21 08:55 09/30/21 09:05 Range/Units Urine Color YELLOW Urine Clarity CLEAR Urine pH 6.0 5-9 Urine Specific [place] <=1.005 1.016-1.022 Urine Protein NEGATIVE NEGATIVE Urine Glucose (UA) NEGATIVE NEGATIVE Urine Ketones NEGATIVE NEGATIVE Urine Nitrite NEGATIVE NEGATIVE Urine Bilirubin NEGATIVE NEGATIVE Urine Urobilinogen 0.2 < = 1.0 MG/DL Urine Leukocyte Esterase NEGATIVE NEGATIVE Urine RBC (Auto) NEGATIVE NEGATIVE Urine RBC NONE /HPF Urine WBC RARE /HPF Urine Squamous Epithelial Cells 0-2 /HPF Urine Crystals NONE /LPF Urine Bacteria NEGATIVE /HPF Urine Casts NONE /LPF Urine Mucus NEGATIVE /LPF Urine Culture Indicated NO White Blood Count 4.5 4.3-11.0 10^3/uL Red Blood Count 4.83 3.80-5.11 10^6/uL Hemoglobin 14.3 11.5-16.0 g/dL Hematocrit 43 35-52 % Mean Corpuscular Volume 89 80-99 fL Mean Corpuscular Hemoglobin 30 25-34 pg Mean Corpuscular Hemoglobin Concent 33 32-36 g/dL Red Cell Distribution Width 13.8 10.0-14.5 % Platelet Count 191 130-400 10^3/uL Mean Platelet Volume 9.9 9.0-12.2 fL Immature Granulocyte % (Auto) 0 % Neutrophils (%) (Auto) 84 H 42-75 % Lymphocytes (%) (Auto) 6 L 12-44 % Monocytes (%) (Auto) 9 0-12 % Eosinophils (%) (Auto) 1 0-10 % Basophils (%) (Auto) 0 0-10 % Neutrophils # (Auto) 3.8 1.8-7.8 10^3/uL Lymphocytes # (Auto) 0.3 L 1.0-4.0 10^3/uL Monocytes # (Auto) 0.4 0.0-1.0 10^3/uL Eosinophils # (Auto) 0.0 0.0-0.3 10^3/uL Basophils # (Auto) 0.0 0.0-0.1 10^3/uL Immature Granulocyte # (Auto) 0.0 0.0-0.1 10^3/uL Neutrophils % (Manual) 86 % Lymphocytes % (Manual) 5 % Monocytes % (Manual) 4 % Eosinophils % (Manual) 1 % Basophils % (Manual) 1 % Band Neutrophils 3 % Urine Test NEGATIVE NEGATIVE Sodium Level 136 135-145 MMOL/L Potassium Level 4.3 3.6-5.0 MMOL/L Chloride Level 103 98-107 MMOL/L Carbon Dioxide Level 22 21-32 MMOL/L Anion Gap 11 5-14 MMOL/L Blood Urea Nitrogen 11 7-18 MG/DL Creatinine 0.79 0.60-1.30 MG/DL Estimat Glomerular Filtration Rate 101 BUN/Creatinine Ratio 14 Glucose Level 91 70-105 MG/DL Calcium Level 8.7 8.5-10.1 MG/DL Corrected Calcium 8.5 8.5-10.1 MG/DL Total Bilirubin 0.3 0.1-1.0 MG/DL Aspartate Amino Transf (AST/SGOT) 13 5-34 U/L Alanine Aminotransferase (ALT/SGPT) 12 0-55 U/L Alkaline Phosphatase 58 40-136 U/L C-Reactive Protein 0.84 H <0.50 MG/DL Total Protein 6.6 6.4-8.2 GM/DL Albumin 4.3 3.2-4.5 GM/DL My Orders Orders - DONALD GUY L DO Cbc With Automated Diff (09/30/21 09:04) Comprehensive Metabolic Panel (09/30/21 09:04) Hcg,Qualitative Urine (09/30/21 09:04) Ua Culture If Indicated (09/30/21 09:04) Crp Fs (09/30/21 09:04) Ct Lumbar Spine Wo (09/30/21 09:04) Ketorolac Injection (Toradol Injection) (09/30/21 09:05) Orphenadrine Inj (Ed Only) (Norflex Inje (09/30/21 09:05) Manual Differential (09/30/21 09:05) Vital Signs/I&O 09/30/21 08:55 Temp 37.4 Pulse 105 Resp 16 B/P (MAP) 115/72 (86) Pulse Ox 99 O2 Delivery Room Air Progress Progress Note : Progress Note Patient is slightly nauseated so I did give her some IV Zofran. Labs do not show any acute findings. CT back show some mild disc bulging but no significant stenosis. Patient with no radiculopathy or red flags. Patient likely a combination of her chronic low back pain in addition to her menstrual cycle that started today. Will prescribe her muscle relaxant along with some Zofran. She should follow-up with her primary care provider as needed. She can also use ibuprofen, topical lidocaine and topical Voltaren cream as needed Diagnostic Imaging Diagonstic Imaging: CT Comments Date of Exam:09/30/21 CT LUMBAR SPINE WO PROCEDURE: CT lumbar spine without contrast. TECHNIQUE: Multiple contiguous axial images were obtained through the lumbar spine without the use of intravenous contrast. Sagittal and coronal reformations were then performed. Auto Exposure Controls were utilized during the CT exam to meet ALARA standards for radiation dose reduction. INDICATION: Low back pain. No known discrete injury. No priors. FINDINGS: Lumbar statures are normal. The alignment is anatomic. The pedicles and pars intact. No acute or suspect endplate irregularity. No fracture or bony destructive process. No paravertebral mass, hemorrhage or fluid collection. IUD device is partially visualized. Visualized sacral segments and partially visualized SI joints unremarkable. No paravertebral mass, hemorrhage or fluid collection. No hydroureteronephrosis. At L3-L4, there is slight circumferential annular disc bulge without resultant stenosis. At L4-L5, disc bulge is broad-based at the midline indenting the ventral thecal sac with mild canal stenosis. No significant foraminal or recess encroachment. At the L5-S1 level, there is degenerative disc space narrowing, endplate sclerosis and diffuse disc bulge with mild canal stenosis. There is [id number] right and mild left foraminal narrowing. IMPRESSION: Mild degenerative changes to the mid to lower lumbar endplates and discs with mild stenoses detailed above. No fracture, malalignment or acute bony pathology. Reviewed: Reviewed by Me, Reviewed/Discussed Departure Impression Primary Impression: Menstrual pain Additional Impression: Low back pain Qualified Codes: M54.50 - Low back pain, unspecified Disposition: 01 HOME, SELF-CARE Condition: Stable Departure-Patient Inst. Referrals: BRIEN VEGAS MD (PCP/Family) Primary Care Physician Patient Instructions: Low Back Pain in Adults, Menstrual Cramps Add. Discharge Instructions: 800 mg ibuprofen 3 times a day or naproxen twice daily 4% topical lidocaine with menthol as directed on package to affected area Diclofenac/Voltaren cream as directed on package Warm moist heat to affected area Follow-up with your primary care provider as needed All discharge instructions reviewed with patient and/or family. Voiced understanding. Scripts Ondansetron (Ondansetron Odt) 4 Mg Tab.rapdis 4 MG PO Q6H PRN for NAUSEA/VOMITING, #20 TAB 0 Refills Prov: DONALD GUY DO 09/30/21 Cyclobenzaprine HCl (Cyclobenzaprine HCl) 10 Mg Tablet 10 MG PO Q8H PRN for SPASMS, #15 TAB 0 Refills Prov: DONALD GUY DO 09/30/21 DONALD GUY DO Sep 30, 2021 08:55
[2021-09-30] MEDS ORDERED: KETOROLAC 30 MG/ML VIAL IM STA (09:05)
[2021-09-30] MEDS ORDERED: ORPHENADRINE 60 MG/2 ML (NORFLEX) AMP (ED ONLY) IM STA (09:05)
[2021-09-30 09:15] LABS: BASOPHILS % (AUTO) 0 % (0-10); EOSINOPHILS % (AUTO) 1 % (0-10); HEMATOCRIT 43 % (35-52); HEMOGLOBIN 14.3 g/dL (11.5-16.0); LYMPHOCYTES # (AUTO) 0.3 10^3/uL (1.0-4.0); LYMPHOCYTES % (AUTO) 6 % (12-44); MEAN CORPUSCULAR HEMOGLOBIN 30 pg (25-34); MEAN CORPUSCULAR HGB CONC 33 g/dL (32-36); MEAN CORPUSCULAR VOLUME 89 fL (80-99); MEAN PLATELET VOLUME 9.9 fL (9.0-12.2); MONOCYTES # (AUTO) 0.4 10^3/uL (0.0-1.0); MONOCYTES % (AUTO) 9 % (0-12); NEUTROPHILS # (AUTO) 3.8 10^3/uL (1.8-7.8); NEUTROPHILS % (AUTO) 84 % (42-75); PLATELET COUNT 191 10^3/uL (130-400); WHITE BLOOD COUNT 4.5 10^3/uL (4.3-11.0)
[2021-09-30 09:16] LABS: BILIRUBIN,URINE NEGATIVE (NEGATIVE); CLARITY,URINE CLEAR; COLOR,URINE YELLOW; GLUCOSE, URINE (UA) NEGATIVE (NEGATIVE); KETONES,URINE NEGATIVE (NEGATIVE); LEUKOCYTE ESTERASE ,URINE NEGATIVE (NEGATIVE); NITRITE,URINE NEGATIVE (NEGATIVE); PROTEIN,URINE NEGATIVE (NEGATIVE)
[2021-09-30 09:24] LABS: BACTERIA,URINE NEGATIVE /HPF; SQUAMOUS EPITHELIAL CELL,UR 0-2 /HPF; WBC,URINE RARE /HPF
--- NOTE | 2021-09-30 09:34 | Diagnostic Imaging Report ---
PROCEDURE: CT lumbar spine without contrast. TECHNIQUE: Multiple contiguous axial images were obtained through the lumbar spine without the use of intravenous contrast. Sagittal and coronal reformations were then performed. Auto Exposure Controls were utilized during the CT exam to meet ALARA standards for radiation dose reduction. INDICATION: Low back pain. No known discrete injury. No priors. FINDINGS: Lumbar statures are normal. The alignment is anatomic. The pedicles and pars intact. No acute or suspect endplate irregularity. No fracture or bony destructive process. No paravertebral mass, hemorrhage or fluid collection. IUD device is partially visualized. Visualized sacral segments and partially visualized SI joints unremarkable. No paravertebral mass, hemorrhage or fluid collection. No hydroureteronephrosis. At L3-L4, there is slight circumferential annular disc bulge without resultant stenosis. At L4-L5, disc bulge is broad-based at the midline indenting the ventral thecal sac with mild canal stenosis. No significant foraminal or recess encroachment. At the L5-S1 level, there is degenerative disc space narrowing, endplate sclerosis and diffuse disc bulge with mild canal stenosis. There is [id number] right and mild left foraminal narrowing. IMPRESSION: Mild degenerative changes to the mid to lower lumbar endplates and discs with mild stenoses detailed above. No fracture, malalignment or acute bony pathology. Dictated by: Dictated on workstation # [id number]
[2021-09-30 09:35] LABS: BAND NEUTROPHILS 3 %; BASOPHILS % (MANUAL) 1 %; EOSINOPHILS % (MANUAL) 1 %; LYMPHOCYTES % (MANUAL) 5 %; MONOCYTES % (MANUAL) 4 %; NEUTROPHILS % (MANUAL) 86 %
[2021-09-30 09:36] LABS: POTASSIUM 4.3 MMOL/L (3.6-5.0)
[2021-09-30 09:37] LABS: ALBUMIN 4.3 GM/DL (3.2-4.5); BILIRUBIN,TOTAL 0.3 MG/DL (0.1-1.0); CALCIUM 8.7 MG/DL (8.5-10.1); CREATININE SERUM 0.79 MG/DL (0.60-1.30); TOTAL PROTEIN 6.6 GM/DL (6.4-8.2)
[2021-09-30] MEDS ORDERED: CYCL10TA25 PO (09:52)
[2021-09-30] MEDS ORDERED: ONDA4TAB11 PO (09:52)
[2021-09-30] MEDS ORDERED: ONDANSETRON 4 MG/2 ML (SDV) Z0FRAN IVP ONE (10:00)
[2021-09-30 10:14] VITALS: BP 132/68
== END 2021-09-30 10:14 | disposition home or self-care (01) ==
LOC: EDUNIT# 08:51 → ER FS 08:53
DX: N94.6 Dysmenorrhea, unspecified (principal); M54.50 Low back pain, unspecified
CPT/HCPCS: 36415; 72131; 80053; 81000; 84703; 85007; 85027; 86141